=== PATIENT | female | born 1990 | race African-American/Black ===

== ENCOUNTER 2022-04-04 13:50 | Emergency (ER) | payer OTHER ==
[2022-04-04 14:31] LABS: Hematocrit 39.6 % (36.0-45.0); Lymphocytes % 26.7 % (15.3-44.8); MCV 93.4 fL (80-100); RBC Red Blood Cell Count 4.24 M/uL (3.86-4.86)
[2022-04-04 14:32] LABS: Urine Blood Trace-lysed (Negative); Urine Glucose Negative (Negative); Urine Protein 1+ (Negative); Urine Specific Gravity 1.025 (1.005-1.030)
[2022-04-04 14:37] LABS: Protime INR 0.95
[2022-04-04 14:43] LABS: Urine Specific Gravity/Preg 1.025 (1.005-1.030)
[2022-04-04 14:46] LABS: Barbiturates NEGATIVE (NEGATIVE); Benzodiazepines NEGATIVE (NEGATIVE); Cocaine NEGATIVE (NEGATIVE); METHAMPHETAM NEGATIVE (NEGATIVE); Methadone NEGATIVE (NEGATIVE); Opiates NEGATIVE (NEGATIVE); Phencyclidine NEGATIVE (NEGATIVE); THC Cannibis POSITIVE (NEGATIVE)
[2022-04-04 14:54] LABS: ALT/SGPT 39 U/L (13-56); AST/SGOT 36 U/L (15-37); Albumin 4.6 g/dL (3.4-5.0); Alkaline Phosphatase 64 U/L (45-117); BUN Blood Urea Nitrogen 5 mg/dL (7-18); Bicarbonate 24 mmol/L (21-32); Bilirubin Direct 0.2 mg/dL (0-0.2); Bilirubin Total 0.8 mg/dL (0.2-1.0); Glomerular Filtration Rate 119 ml/min (=/>90); Glucose Level 113 mg/dL (74-106); Potassium 3.5 mmol/L (3.5-5.1); Protein, Total 8.3 g/dL (6.4-8.2); Sodium Level 137 mmol/L (136-145)
[2022-04-04] MEDS ORDERED: levETIRAcetam 500 MG TAB ONE (15:37)
--- NOTE | 2022-04-04 20:29 | ER ---
Nurse's Notes [facility] Name: Little Leahy Age: 32 yrs Sex: Female : 1990 Arrival Date: 04/04/2022 Time: 13:54 Bed 20 Private MD: Diagnosis: Suicidal ideations Presentation: 04/04 13:59 Chief complaint: Patient states: Not taking psych meds for at least 1 month. Harming ll1 herself at home, neighbor reports. Generic hydroxyzine, BuSpar, and sertraline. Patient doesn't want to speak. Not eating or sleeping. Coronavirus screen: Client denies travel out of the [place] in the last 14 days. At this time, the client does not indicate any symptoms associated with coronavirus-19. Ebola Screen: Patient denies travel to an Ebola-affected area in the 21 days before illness onset. Initial Sepsis Screen: Does the patient meet any 2 criteria? No. Patient's initial sepsis screen is negative. Does the patient have a suspected source of infection? No. Patient's initial sepsis screen is negative. Risk Assessment: Do you want to hurt yourself or someone else? Patient reports no desire to harm self or others. Onset of symptoms is unknown. 13:59 Method Of Arrival: Ambulatory ll1 13:59 Acuity: GEETA 2 ll1 Triage Assessment: 14:25 General: Appears in no apparent distress. comfortable, Behavior is calm, cooperative. 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 - Social history:: Smoking status: Patient reports the use of cigarette tobacco products, cigars, Patient uses alcohol. Screenin:08 [facility] ED Fall Risk Assessment (Adult) History of falling in the last 3 months, db including since admission No falls in past 3 months (0 pts) Confusion or Disorientation No (0 pts) Intoxicated or Sedated No (0 pts) Impaired Gait No (0 pts) Mobility Assist Device Used No (0 pt) Altered Elimination No (0 pt) Score/Fall Risk Level 0 - 2 = Low Risk Oriented to surroundings, Maintained a safe environment. Abuse screen: Denies threats or abuse. Denies injuries from another. Nutritional screening: No deficits noted. Tuberculosis screening: No symptoms or risk factors identified. Assessment: 14:25 Reassessment: Patient appears in no apparent distress at this time. Patient and/or db family updated on plan of care and expected duration. Pain level reassessed. Patient is alert, oriented x 3, equal unlabored respirations, skin warm/dry/pink. patient brought in by parents because she has been making statements that she doesn't want to be here anymore and that "if I don't you won't get my life insurance if it's a suicide". Patient has not been eating per family. General: Appears in no apparent distress. comfortable, Behavior is calm. Pain: Denies pain. Neuro: Level of Consciousness is awake, alert, obeys commands, Oriented to person, place, time, situation. Respiratory: Airway is patent Respiratory effort is even, unlabored, Respiratory pattern is regular, symmetrical. 16:57 Reassessment: Patient appears in no apparent distress at this time. No changes from db previously documented assessment. Patient and/or family updated on plan of care and expected duration. Pain level reassessed. Patient is alert, oriented x 3, equal unlabored respirations, skin warm/dry/pink. family at bedside. 17:11 Reassessment: [facility] jointer submarine cable at patient bedside speaking with patient and family. 17:12 Reassessment: Patient appears in no apparent distress at this time. No changes from db previously documented assessment. Patient and/or family updated on plan of care and expected duration. Pain level reassessed. Patient is alert, oriented x 3, equal unlabored respirations, skin warm/dry/pink. 18:00 Reassessment: Patient appears in no apparent distress at this time. No changes from db previously documented assessment. Patient and/or family updated on plan of care and expected duration. Pain level reassessed. Patient is alert, oriented x 3, equal unlabored respirations, skin warm/dry/pink. 19:07 Reassessment: Patient appears in no apparent distress at this time. No changes from db previously documented assessment. Patient and/or family updated on plan of care and expected duration. Pain level reassessed. Patient is alert, oriented x 3, equal unlabored respirations, skin warm/dry/pink. 19:30 Pain: Denies pain. Neuro: talking to herself . ha1 19:30 Reassessment: Patient and/or family updated on plan of care and expected duration. Pain ha1 level reassessed. Patient is alert, oriented x 3, equal unlabored respirations, skin warm/dry/pink. 20:20 Reassessment: Patient and/or family updated on plan of care and expected duration. Pain ha1 level reassessed. Patient is alert, oriented x 3, equal unlabored respirations, skin warm/dry/pink. being transfer by [facility]. Psych: 14:25 [place] Suicide Severity Screening: In the past month, have you wished you were db or wished you could go to sleep and not wake up? Patient responds "yes." "In the past month, have you actually had any thoughts of killing yourself?" Patient responds "yes." "In your lifetime, have you ever done anything, started to do anything, or prepared to do anything to end your life?" family states patient has talked about doing it patient not answering questions. family at bedside. Subjective: Patient's mood is hopeless. Objective: Patient is cooperative, Speech is normal, Affect is flat. Interventions: Removed personal items and placed in bag. Patient placed in hospital gown. Searched person for dangerous items. Belonging list filled out. Patient reassessed during use of restraints. Patient is physically safe. Safety Checks: Personal items have been removed. Door is open. Visitors are present. Pt denies substance abuse. Commitment: Patient will be a voluntary commitment. Vital Signs: 13:59 BP 142 / 97; Pulse 78; Resp 18; Temp 98.6; Pulse Ox 100% ; ll1 16:45 BP 136 / 75; Pulse 69; Resp 16; Temp 97.8(O); Pulse Ox 100% on R/A; db 18:00 BP 128 / 68; Pulse 68; Resp 16; Temp 97.9; Pulse Ox 100% ; db ED Course: 13:54 Patient arrived in ED. rg4 13:55 Maverick Toure NP is PHCP. pm1 13:55 Low Carreon DO is Attending Physician. pm1 14:01 Triage completed. ll1 14:02 Arm band placed on. ll1 14:36 Acetaminophen Sent. bc6 14:36 Basic Metabolic Panel Sent. bc6 14:36 ETOH Level Sent. bc6 14:36 Hepatic Function Sent. bc6 14:36 PT-INR Sent. bc6 14:36 Ptt, Activated Sent. bc6 14:36 Salicylate Sent. bc6 14:36 Urine Drug Screen Sent. bc6 14:36 Initial lab(s) drawn, by al, sent to lab. Urine collected: clean catch specimen. bc6 Inserted saline lock: 20 gauge in right antecubital area, using aseptic technique. 15:00 Lo Licona, RN is Primary Nurse. db 15:08 Patient has correct armband on for positive identification. Bed in low position. Call db light in reach. Side rails up X 1. 15:24 [facility] called to request a screener. em1 17:00 PHCP role handed off by Maverick Toure, MEAGAN snw 17:00 Alina Field FNP-C is PHCP. snw 18:00 PT clinical information faxed to [facility], [facility], [address], and [facility]. 18:43 [facility] calls to conduct nurse to nurse. em1 18:51 Report given to MAZIN Niño at [facility]. db 19:06 Report given to MAZIN Hoff shift production supervisor. db 19:49 Pt accepted for transfer to [facility] by Dr. López per Nichol Conrad \\T\\ [id number]. wm Acceptance given to David England. 20:21 No provider procedures requiring assistance completed. IV discontinued, intact, ha1 bleeding controlled, No redness/swelling at site. Pressure dressing applied. Administered Medications: No medications were administered Medication: 17:12 VIS not applicable for this client. db Outcome: 20:21 Transferred by ground EMS Note: [facility] to [facility] ha1 20:21 Condition: stable 20:21 Discharge instructions given to patient, family, Instructed on the need for transfer, Demonstrated understanding of instructions. 20:28 ER care complete, transfer ordered by . snw 20:35 Patient left the ED. ha1 Signatures: Alina Field FNP-C CAR REPAIRER-David Shah em1 Maverick Toure NP DIRECTOR CLOUD TRANSFORMATION pm1 Suki Contreras rg4 Jaki Lozano RN RN ll1 Meseret Jin wm Salena Jay RN RN ha1 Lo Licona, RN RN db Mindy Ayers 6 Corrections: (The following items were deleted from the chart) 18:48 16:45 BP 136 / 75; Pulse 69bpm; Resp 65bpm; Pulse Ox 100% RA; Temp 97.8F Oral; db db 20:21 19:30 Reassessment: Patient and/or family updated on plan of care and expected ha1 duration. Pain level reassessed. Patient is alert, oriented x 3, equal unlabored respirations, skin warm/dry/pink. being transfer by [facility] ha1
--- NOTE | 2022-04-04 20:29 | EDPHYS ---
Physician Documentation [facility] Name: Little Leahy Age: 32 yrs Sex: Female : 1990 Arrival Date: 04/04/2022 Time: 13:54 Bed 20 Private MD: ED Physician Low Carreon HPI: 04/04 14:05 This 32 yrs old Black Female presents to ER via Ambulatory with complaints of Suicidal pm1 Ideation. 14:05 The patient presents to the emergency department with suicide ideation. Onset: The pm1 symptoms/episode began/occurred yesterday. Past psychiatric history: Prior diagnosis: bipolar disorder, schizophrenia, insomnia induced psychosis. Associated signs and symptoms: The patient has no apparent associated signs or symptoms. Severity of symptoms: in the emergency department the symptoms are worse. The patient has experienced similar episodes in the past, a few times. The patient has been recently seen by a physician: Dr. Ching 1 month(s) ago, with similar presenting complaints, and apparently given a diagnosis of schizophrenia. 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 - Social history:: Smoking status: Patient reports the use of cigarette tobacco products, cigars, Patient uses alcohol. ROS: 14:05 Constitutional: Negative for fever, chills, and weight loss, Cardiovascular: Negative pm1 for chest pain, palpitations, and edema, Respiratory: Negative for shortness of breath, cough, wheezing, and pleuritic chest pain, MS/Extremity: Negative for injury and deformity, Skin: Negative for injury, rash, and discoloration, Neuro: Negative for headache, weakness, numbness, tingling, and seizure. 14:05 Psych: Positive for suicidal ideation, per mother. Patient is not willing to talk to me or nursing staff. 14:05 All other systems are negative. Exam: 14:05 Head/Face: Normocephalic, atraumatic. pm1 14:05 Skin: Warm, dry with normal turgor. Normal color with no rashes, no lesions, and no evidence of cellulitis. MS/ Extremity: Pulses equal, no cyanosis. Neurovascular intact. Full, normal range of motion. 14:05 Constitutional: The patient appears in no acute distress, awake, comfortable, non-diaphoretic, non-toxic, well developed, well hydrated, well groomed, well nourished. 14:05 Eyes: Exam is negative for acute changes, Pupils: no acute changes, Conjunctiva: no acute changes, no injection. 14:05 ENT: Exam is negative for acute changes, Mouth: no acute changes, Lips: normal, moist, Oral mucosa: normal, pink and intact, moist. 14:05 Cardiovascular: Exam negative for acute changes, Rate: normal, Rhythm: regular, Pulses: no pulse deficits are appreciated. 14:05 Respiratory: Exam negative for acute changes, respiratory distress, shortness of breath. 14:05 Neuro: Exam negative for acute changes, patient is not willing to talk to me or nursing staff. 14:05 Psych: Affect is flat, Patient having thoughts of suicide. Denies suicidal plan. per mother Vital Signs: 13:59 BP 142 / 97; Pulse 78; Resp 18; Temp 98.6; Pulse Ox 100% ; ll1 16:45 BP 136 / 75; Pulse 69; Resp 16; Temp 97.8(O); Pulse Ox 100% on R/A; db 18:00 BP 128 / 68; Pulse 68; Resp 16; Temp 97.9; Pulse Ox 100% ; db MDM: 14:04 Patient medically screened. pm1 14:18 Data reviewed: vital signs. pm1 15:15 Counseling: I had a detailed discussion with the patient and/or guardian regarding: the pm1 historical points, exam findings, and any diagnostic results supporting the discharge/admit diagnosis, lab results, pending evaluation from [facility] evaluation . 15:21 Historians other than the Patient: Parent: Mother reports that the patient was pm1 expressing suicidal ideation yesterday. Patient last seen by Dr. Ching, psychiatrist 1 month ago and was diagnosed schizophrenia, insomnia induced psychosis, bipolar disorder. Patient was prescribed medications but has not taken any of them. 16:06 ED course: [facility] present to evaluate the patient. pm1 17:00 Transition of care: Care assumed from Maverick Toure NP. Special discussion: [facility] Jose L here for evaluation. . 04/04 14:04 Order name: Acetaminophen; Complete Time: 15:08 pm1 04/04 14:04 Order name: Basic Metabolic Panel; Complete Time: 15:08 pm1 04/04 14:04 Order name: CBC with Diff; Complete Time: 14:45 pm1 04/04 14:04 Order name: ETOH Level; Complete Time: 14:45 pm1 04/04 14:04 Order name: Hepatic Function; Complete Time: 15:08 pm1 04/04 14:04 Order name: PT-INR; Complete Time: 14:45 pm1 04/04 14:04 Order name: Ptt, Activated; Complete Time: 14:45 pm1 04/04 14:04 Order name: Salicylate; Complete Time: 15:14 pm1 04/04 14:04 Order name: Urine Drug Screen; Complete Time: 14:46 pm1 04/04 14:04 Order name: EKG; Complete Time: 14:05 pm1 04/04 14:04 Order name: EKG - Nurse/Tech; Complete Time: 15:43 pm1 04/04 14:32 Order name: Urine Dipstick-Ancillary; Complete Time: 14:45 EDMS 04/04 14:33 Order name: Urine --Ancillary (enter results); Complete Time: 14:45 em1 04/04 15:25 Order name: Diet Finger Food; Complete Time: 15:25 db 04/04 14:04 Order name: IV Saline Lock; Complete Time: 14:36 pm1 04/04 14:04 Order name: Labs collected and sent; Complete Time: 14:36 pm1 04/04 14:04 Order name: Suicide Precautions; Complete Time: 15:11 pm1 04/04 14:04 Order name: Suicide Screening ([place]); Complete Time: 15:11 pm1 04/04 14:04 Order name: Urine Dipstick-Ancillary (obtain specimen); Complete Time: 14:32 pm1 04/04 14:04 Order name: Urine Test (obtain specimen); Complete Time: 14:32 pm1 Administered Medications: No medications were administered Disposition: 19:19 Co-signature as Attending Physician, Low SANTIAGO was immediately available on-site ms3 in the Emergency Department for consultation in the care of the patient. Disposition Summary: 04/04/22 20:28 Transfer Ordered Transfer Location: [facility] Facility snw Reason: Higher level of care snw Condition: Stable snw Problem: an ongoing problem snw Symptoms: are unchanged snw Accepting Physician: Dr. López(04/04/22 20:35) ha1 Diagnosis - Suicidal ideations snw Discharge Instructions: - Discharge Summary Sheet wm Forms: - Medication Reconciliation Form snw - SBAR form wm Signatures: Dispatcher [employer] EDMS Alina Field, SECURITY ATTENDANT-C SECURITY ATTENDANT-Csnw Maverick Toure, MEAGAN FRAME CHANGER pm1 Jaki Lozano RN RN ll1 Low Carreon, DO ms3 Salena Jay RN RN ha1 Corrections: (The following items were deleted from the chart) 20:35 20:28 Dr. López snw ha1
[2022-04-04 20:59] VITALS: O2SAT 100
[2022-04-04 21:01] VITALS: BP 128/68; TEMP 97.9
== END 2022-04-04 20:35 ==
LOC: ER 13:50
DX: R45.851 Suicidal ideations (principal); F20.9 Schizophrenia, unspecified; Z88.0 Allergy status to penicillin
CPT/HCPCS: 93005; 85025; 80048; 36415; 81025; 85610; 80076; 85730; 81003; 80307; 99285; G0480 ×3